=== PATIENT | female | born 1935 | race Caucasian/White ===

== ENCOUNTER → 2016-11-13 | Outpatient (CLI) | payer MEDICARE, MEDICAID ==
[~2016-11-13] MED LIST: ACET-62 PO; ACET325T51 PO; CITA10TA7 PO; LEVO50TA11 PO; LORA0.5T2 PO; POTA20TA10 PO; [UNRECOGNIZED DRUG - CODE] PO
== END ==
LOC: LABNH.A212 01:30
PROVIDERS: ATTEND Family Medicine
DX: E03.9 Hypothyroidism, unspecified (principal)
CPT/HCPCS: 36415; 84443; P9604